=== PATIENT | male | born 1985 | race Two or more races ===

== ENCOUNTER 2022-11-04 03:52 | Emergency (ER) | payer SELFPAY ==
[~2022-11-04] VITALS: Ht 177.8 cm; Wt 99.8 kg
[2022-11-04] MEDS ORDERED: KETOROLAC TROMETHAMINE INJ 60 MG/2 ML VIAL IM ONE ×2 (04:00→04:08)
[2022-11-04] MEDS ORDERED: KETO10TA2 PO (05:16)
[2022-11-04 08:45] VITALS: BP 141/86; TEMP 99.2; O2SAT 98
== END 2022-11-04 08:46 | disposition home or self-care (01) ==
LOC: ER 03:57
DX: S63.591A Other specified sprain of right wrist, initial encounter (principal); Z79.899 Other long term (current) drug therapy; Y04.0XXA Assault by unarmed brawl or fight, initial encounter; Y93.89 Activity, other specified; Y92.89 Other specified places as the place of occurrence of the external cause; Y99.8 Other external cause status
CPT/HCPCS: 99283; 96372; 73110; J1885